=== PATIENT | male | born 1975 | race Caucasian/White ===

== ENCOUNTER → 2023-06-29 16:50 | Outpatient (REF) | payer SELFPAY | LOC: RAD 16:50 | PROVIDERS: ATTENDING PHYSICIAN Nurse Practitioner Family | DX: E78.49 Other hyperlipidemia (principal); Z82.49 Family history of ischemic heart disease and other diseases of the circulatory system | CPT/HCPCS: 75571 ==

== ENCOUNTER → 2023-12-19 06:26 | Day surgery (SDC) | payer OTHER, SELFPAY | LOC: GI 06:26 | PROVIDERS: ATTENDING PHYSICIAN Internal Medicine | DX: Z12.11 Encounter for screening for malignant neoplasm of colon (principal); D12.3 Benign neoplasm of transverse colon; K57.30 Diverticulosis of large intestine without perforation or abscess without bleeding; K62.1 Rectal polyp; K64.9 Unspecified hemorrhoids; Z86.010 Personal history of colon polyps | CPT/HCPCS: 45385; 45380; 88305 ==